=== PATIENT | female | born 2000 | race Caucasian/White ===

== ENCOUNTER 2020-04-19 20:26 | Emergency (ER) | payer MEDICAID, OTHER ==
[~2020-04-19] VITALS: Ht 139.7 cm; Wt 44.5 kg
[2020-04-19 20:52] VITALS: BP 113/62
--- NOTE | 2020-04-19 20:54 | NUR ---
To ED bed 03
--- NOTE | 2020-04-19 21:20 | NUR ---
PT D/C WITH VSS. PT WAS INSTRUCTED TO FOLLOW UP WITH PCP AND EDUCATED ON IN HOME CARE. PT UNDERSTOOD. PT AMBULATED OUT OF ER. NO SIGN OF DISTRESS NOTED. PT WAS GIVEN MEDICATION PRESCRIPTION.
[2020-04-19 21:21] VITALS: BP 113/62
--- NOTE | 2020-04-19 21:25 | NUR ---
PT HAS A STY TO R EYE X 1 WEEK, USED OTC STY MED WITH NO IMPROVEMENT. STATES STY IS ACTUALLY GETTING BIGGER. DENIES ANY DISCHARGE BUT HAS 8/10 PAIN. AFEBRILE, NO N/V/D. BED IN LOWEST POSITION AND SIDERAIL UP X 1. NKA NO HX
== END 2020-04-19 21:21 | disposition home or self-care (01) ==
LOC: MED 20:26
DX: L03.213 Periorbital cellulitis (principal); H00.013 Hordeolum externum right eye, unspecified eyelid
CPT/HCPCS: 99283

== ENCOUNTER 2020-07-15 19:15 | Emergency (ER) | payer MEDICAID ==
[~2020-07-15] VITALS: Ht 157.5 cm; Wt 45.4 kg
[2020-07-15] MEDS ORDERED: KETOROLAC 30 MG/ML VIAL IM ONE (20:05)
[2020-07-15] MEDS ORDERED: ONDANSETRON 4 MG ODT PO ONE (20:05)
[2020-07-15 20:29] VITALS: BP 101/60
--- NOTE | 2020-07-15 20:32 | NUR ---
TO LOBBY A/W BED AMBULATORY
[2020-07-15 20:53] LABS: HEMATOCRIT 37.6 % (36-48); HEMOGLOBIN 12.6 g/dL (12.0-16.0); LYMPHOCYTES # (AUTO) 1.1 K/uL (2.5-16.5); LYMPHOCYTES % (AUTO) 5.7 % (20.5-51.1); MEAN CORPUSCULAR HEMOGLOBIN 28 pg (27-31); MEAN CORPUSCULAR HGB CONC 34 g/dL (33-37); MEAN CORPUSCULAR VOLUME 83.8 fL (80-94); MONOCYTES # (AUTO) 1.3 K/uL (0.8-1.0); MONOCYTES % (AUTO) 6.4 % (1.7-9.3); NEUTROPHILS # (AUTO) 17.5 K/uL (1.8-7.7); NEUTROPHILS % (AUTO) 87.9 % (42.2-75.2); PLATELET COUNT (AUTO) 331 K/uL (140-450); RED BLOOD CELL COUNT(AUTO) 4.49 MIL/uL (4.20-5.40); RED CELL DISTRIBUTION WIDTH 13.3 % (11.6-13.7); WHITE BLOOD COUNT (AUTO) 19.9 K/uL (4.5-11.0)
[2020-07-15 21:11] LABS: ALBUMIN 4.5 g/dL (3.4-5.0); ANION GAP 15.3 (8-16); CARBON DIOXIDE 24.2 mmol/L (21-32); CREATININE 0.8 mg/dL (0.6-1.3); POTASSIUM 3.5 mmol/L (3.5-5.1); TOTAL BILIRUBIN 0.5 mg/dL (0.0-1.0)
--- NOTE | 2020-07-15 21:25 | NUR ---
SEEN AND EXAMINED BY NILES WITH ORDERS AND CARRIED OUT
[2020-07-15 23:05] VITALS: BP 101/60
--- NOTE | 2020-07-15 23:05 | NUR ---
Patient discharged with v/s stable. Written and verbal after care instructions given and explained. Patient alert, oriented and verbalized understanding of instructions. Ambulatory with steady gait. All questions addressed prior to discharge. ID band removed. Patient advised to follow up with PMD. Rx of ZOFRAN AND NAPROSYN given. Patient educated on indication of medication including possible reaction and side effects. Opportunity to ask questions provided and answered.
== END 2020-07-15 23:05 | disposition home or self-care (01) ==
LOC: MED 19:15
DX: N83.292 Other ovarian cyst, left side (principal); D72.829 Elevated white blood cell count, unspecified; R10.9 Unspecified abdominal pain
CPT/HCPCS: 36415; 74176; 80053; 83690; 84702; 85025; 96372; 99284; J1885; Q0162

== ENCOUNTER 2021-07-22 05:20 | Emergency (ER) | payer MEDICAID ==
[~2021-07-22] VITALS: Ht 160 cm; Wt 49.9 kg
[2021-07-22 05:29] VITALS: BP 109/68
--- NOTE | 2021-07-22 05:29 | NUR ---
TO BED AMBULATORY
[2021-07-22] MEDS ORDERED: DICYCLOMINE HCL LIQUID 20 MG, ALUMINUM HYD/MAG/SIMETHICONE 30 ML, LIDOCAINE VISCOUS 2% ... PO ONE ×3 (05:40)
[2021-07-22] MEDS ORDERED: ONDANSETRON 4 MG ODT PO ONE (05:40)
--- NOTE | 2021-07-22 05:49 | NUR ---
ALERT AND ORIENTED X4. EQUAL RISE AND FALL OF THE CHEST. PT REPORTS N/V SINCE LAST NIGHT. REPORTS LOWER ABDOMINAL PAIN, NONRADIATING. RATES OVERALL PAIN /. DENIES MEDICAL OR SURGICAL HX, DENIES HOME MEDS.
[2021-07-22] MEDS ORDERED: DICYCLOMINE HCL LIQUID 10 MG/5 ML UDC ONE (05:53)
[2021-07-22] MEDS ORDERED: ALUMINUM HYD/MAG/SIMETHICONE 30 ML UDC ONE (05:54)
[2021-07-22 06:20] LABS: BASOPHILS % (AUTO) 0.2 % (0.0-2.0); HEMATOCRIT 35.2 % (36-48); HEMOGLOBIN 11.8 g/dL (12.0-16.0); LYMPHOCYTES # (AUTO) 0.6 K/uL (2.5-16.5); LYMPHOCYTES % (AUTO) 3.9 % (20.5-51.1); MEAN CORPUSCULAR HEMOGLOBIN 28 pg (27-31); MEAN CORPUSCULAR HGB CONC 34 g/dL (33-37); MEAN CORPUSCULAR VOLUME 84.9 fL (80-94); MONOCYTES # (AUTO) 0.4 K/uL (0.8-1.0); MONOCYTES % (AUTO) 2.6 % (1.7-9.3); NEUTROPHILS # (AUTO) 13.9 K/uL (1.8-7.7); NEUTROPHILS % (AUTO) 93.3 % (42.2-75.2); PLATELET COUNT (AUTO) 259 K/uL (140-450); RED BLOOD CELL COUNT(AUTO) 4.15 MIL/uL (4.20-5.40); WHITE BLOOD COUNT (AUTO) 14.9 K/uL (4.8-10.8)
[2021-07-22 06:35] LABS: ALBUMIN 3.9 g/dL (3.4-5.0); ANION GAP 13.7 (8-16); CARBON DIOXIDE 24.3 mmol/L (21-32); CREATININE 0.7 mg/dL (0.6-1.3); TOTAL BILIRUBIN 0.5 mg/dL (0.0-1.0)
--- NOTE | 2021-07-22 06:42 | NUR ---
COMPLAINING OF PAIN, RATES PAIN 8/10. MD NOTIFIED.
[2021-07-22] MEDS ORDERED: HYDROcodone/APAP 5/325 MG 1 TAB TAB PO ONE (06:50)
--- NOTE | 2021-07-22 07:17 | NUR ---
Pt report given to MEL VIDAL. Transfer of care at this time.
--- NOTE | 2021-07-22 07:30 | NUR ---
RECEIVED PT IN [facility] AOX4. HERE FOR ABDOMINAL PAIN, PENDING RESULTS. NAD. SAFETY MAITAINED.
[2021-07-22] MEDS ORDERED: NAPR-1003 PO (09:27)
[2021-07-22] MEDS ORDERED: KETOROLAC 30 MG/ML VIAL IM ONE (09:30)
--- NOTE | 2021-07-22 09:30 | NUR ---
PTC/O 5/10 ABDOMINAL PAIN MEDICATED PER ORDER
[2021-07-22 10:46] VITALS: BP 109/55
== END 2021-07-22 10:45 | disposition home or self-care (01) ==
LOC: MED 05:20
DX: R10.13 Epigastric pain (principal); R10.33 Periumbilical pain; R11.2 Nausea with vomiting, unspecified; Z79.1 Long term (current) use of non-steroidal anti-inflammatories (NSAID)
CPT/HCPCS: 36415; 74176; 80053; 81002; 81025; 85025; 96372; 99284; J1885; Q0162

== ENCOUNTER 2023-08-20 09:40 | Emergency (ER) | payer MEDICAID ==
[~2023-08-20] VITALS: Ht 154.9 cm; Wt 45.4 kg
[~2023-08-20 09:40] MED LIST: NAPR-1003 PO
[2023-08-20 09:47] VITALS: BP 106/87; PULSE 100; RESP 16; TEMP 97.7; O2SAT 100
[2023-08-20] MEDS ORDERED: KETOROLAC 30 MG/ML VIAL IM ONE (10:40)
[2023-08-20] MEDS ORDERED: ACETAMINOPHEN EXTRA STRENGTH 500 MG TAB PO ONE (10:40)
[2023-08-20] MEDS ORDERED: LIDOCAINE 2% 1000 MG/50 ML VIAL INJ ONE (11:35)
== END 2023-08-20 12:06 | disposition home or self-care (01) ==
LOC: MED 09:40
DX: L02.31 Cutaneous abscess of buttock (principal); Z79.1 Long term (current) use of non-steroidal anti-inflammatories (NSAID)
CPT/HCPCS: 10060; 96372; 99284; J1885